=== PATIENT | female | born 1985 | race Caucasian/White ===

== ENCOUNTER 2018-01-05 08:16 | Inpatient (IN) | payer OTHER ==
[2018-01-05] VITALS (13 sets, daily range): BP systolic 111–121; BP diastolic 58–77; PULSE 64–76; RESP 16–18; TEMP 98–98.4
[~2018-01-05] VITALS: Ht 180.3 cm; Wt 81.0 kg
[2018-01-05] MEDS ORDERED: PRENTAB7 (09:10)
[2018-01-05] MEDS ORDERED: VITA250T3 PO (09:17)
[2018-01-05] MEDS ORDERED: ZINC30TA PO (09:18)
[2018-01-05 09:25] LABS: AUTOMATED NEUTROPHIL # 8.9 TH/MM3 (1.8-7.7); BASOPHIL % 0.3 % (0.0-2.0); EOSINOPHIL # 0.3 TH/MM3 (0-0.4); EOSINOPHIL % 2.1 % (0.0-4.0); HEMATOCRIT 37.1 % (35.0-46.0); HEMOGLOBIN 13.1 GM/DL (11.6-15.3); LYMPH % 18.9 % (9.0-44.0); LYMPHOCYTE # 2.4 TH/MM3 (1.0-4.8); MEAN CELL VOLUME 89.9 FL (80.0-100.0); MEAN CORPUSCULAR HEMOGLOBIN 31.8 PG (27.0-34.0); MEAN CORPUSCULAR HGB CONC 35.4 % (32.0-36.0); MEAN PLATELET VOLUME 10.7 FL (7.0-11.0); MONO % 8.3 % (0.0-8.0); MONOCYTE # 1.1 TH/MM3 (0-0.9); NEUT % 70.4 % (16.0-70.0); PLATELET COUNT 188 TH/MM3 (150-450); RED BLOOD COUNT 4.13 MIL/MM3 (4.00-5.30); RED CELL DISTRIBUTION WIDTH 13.1 % (11.6-17.2); WHITE BLOOD COUNT 12.7 TH/MM3 (4.0-11.0)
[2018-01-05 09:38] LABS: BACTERIA, URINE FEW /hpf; BILIRUBIN, URINE NEG (NEG); BLOOD, URINE NEG (NEG); CALCIUM OXALATE CRYSTALS,URINE OCC /hpf; GLUCOSE,URINE NEG (NEG); KETONE, URINE NEG (NEG); MUCUS URINE MOD /lpf (OCC); NITRITE,URINE NEG (NEG); PH, URINE 5.5 (5.0-8.5); SQUAMOUS EPITHELIAL CELL URINE 5 /hpf (0-5); URINE COLOR YELLOW (YELLW/STRAW); URINE LEUKOCYTE ESTERASE SMALL (NEG)
[2018-01-05] MEDS ORDERED: LIDOCAINE HCL 1% 50 ML VIAL INFIL PRN (10:00)
[2018-01-05] MEDS ORDERED: OXYTOCIN 30 UNITS 500ML PREMIX IV ONE (10:00)
[2018-01-05] MEDS ORDERED: CITRIC ACID-SODIUM CITRATE LIQ 30 ML UDC PO SCH (10:00)
[2018-01-05] MEDS ORDERED: MINERAL OIL 10 ML VIAL TOPICAL PRN (10:00)
[2018-01-05] MEDS: LACTATED RINGER'S 1000 ML IV SCH ×2 (10:00→18:00)
[2018-01-05] MEDS ORDERED: MISOPROSTOL 100 MCG TAB - VAGINALLY VAGINAL ONE (10:00)
[2018-01-05] MEDS ORDERED: LIDOCAINE HCL 1% 50 ML VIAL I-DERMAL PRN (10:00)
[2018-01-05] MEDS ORDERED: LACTATED RINGER'S 1000 ML BOLUS IV PRN (10:00)
[2018-01-05] MEDS ORDERED: NS 1000 ML IV PRN (10:00)
[2018-01-05] MEDS: LACTATED RINGER'S 1000 ML INJ 1,000 ML IV SCH ×2 (10:00→18:00)
[2018-01-05] MEDS ORDERED: NS 500 ML BOLUS IV PRN (10:00)
--- NOTE | 2018-01-05 21:12 | PD.LABORPN ---
Subjective Subjective patient doing well. She wants pitocin and not Arom after 2x cervidil Objective Vital Signs Vital Signs Date Time Temp Pulse Resp B/P (MAP) Pulse Ox O2 Delivery O2 Flow Rate FiO2 01/05/18 19:45 98.3 01/05/18 19:45 16 01/05/18 19:41 69 114/67 (83) 01/05/18 15:05 68 111/58 (75) 01/05/18 15:04 98.1 16 Objective Pelvic Exam: Cervix: [-] Dilatation: 1 Effacement: 70 Station: [-] Presentation: vtx Membranes: intact Uterine Contractions: [-] FHT's: Category: 1 Baseline: [-] Reactive: [-] Variability: [-] Decels: [-] Weeks Gestation: 40 Gest Age Assessed Date: Jan 05, 2018 Pt started active labor?: Yes Active labor start date: Jan 05, 2018 Active labor start time: 10:00 Medical induction of labor?: Yes Medical induction start date: Jan 05, 2018 Medical induction start time: 10:00 Artificial rupture of membrane: No Assessment/Plan Problem List: (1) 40 weeks gestation of ICD Codes: Z3A.40 - 40 weeks gestation of Lars Salcedo MD Jan 05, 2018 21:12
[2018-01-05] MEDS ORDERED: OXYTOCIN 30 UNITS-500ML PREMIX 500 ML IV PRN (21:15)
--- NOTE | 2018-01-05 22:27 | HHI.HP ---
HPI Chief Complaint post dates 40 5/7 weeks Date Seen: Jan 05, 2018 Time Seen: 19:00 Travel History International Travel<30 Days: No Contact w/Intl Traveler<30Days: No Known Affected Area: No History of Present Illness HPI 32 yo comes for induction at 40 5/7 week with cytotec. She is aware of increased risk of CS Weeks Gestation: 40 Para: 0 : 1 History Past Medical History Medical History: Denies Significant Hx Past Surgical History Surgical History: No Previous Surgery Family History Family History: Negative Social History Alcohol Use: No Tobacco Use: No Substance Abuse: No Allergies-Medications (Allergen,Severity, Reaction): Coded Allergies: No Known Allergies (Unverified , 01/05/18) Home Meds Reported Medications Zinc Gluconate (Zinc Gluconate) 30 Mg Tab, 30 MG PO DAILY for Nutritional Supplement, TAB 0 Refills 01/05/18 Ascorbic Acid (Vitamin C) 250 Mg Tab, 250 MG PO for Nutritional Supplement, TAB 0 Refills 01/05/18 Pnv No.95/Ferrous Fum/Folic AC ( Vitamins Tablet) 28 Mg Iron-800 Mcg Tablet 01/05/18 Review of Systems Except as stated in HPI: all other systems reviewed are Neg Physical Exam Vital Signs Date Time Temp Pulse Resp B/P (MAP) Pulse Ox O2 Delivery O2 Flow Rate FiO2 01/05/18 22:00 71 118/72 (87) 01/05/18 21:45 18 01/05/18 21:36 75 112/65 (81) 01/05/18 19:45 98.3 01/05/18 19:45 16 01/05/18 19:41 69 114/67 (83) 01/05/18 15:05 68 111/58 (75) 01/05/18 15:04 98.1 16 01/05/18 11:04 98.4 Narrative GENERAL: Well-nourished, well-developed patient. SKIN: Warm and dry. HEAD: Normocephalic and atraumatic. . NECK: Supple, trachea midline. No JVD. CARDIOVASCULAR: Regular rate and rhythm without murmurs, gallops, or rubs. RESPIRATORY: Breath sounds equal bilaterally. No accessory muscle use. BREASTS: Bilateral exam showed no masses , no retractions, no nipple discharge. ABDOMEN/GI: Abdomen soft, non-tender, bowel sounds present, no rebound, no guarding Gravid to [-] weeks size Fundal Height: 40 cm GENITOURINARY: External Genitalia: intact and normal in appearance BUS glands: [-] Cervix: 1 Dilatation: 1 Effacement: 50 Station: [-] Presentation: [-] Membranes: [intact Uterine Contractions: none FHT's: Category: 1 Baseline: [-] Reactive: [-] Variability: [-] Decels: [-] EXTREMITIES: No cyanosis or edema. BACK: Nontender without obvious deformity. No CVA tenderness. NEUROLOGICAL: Awake and alert. Motor and sensory grossly within normal limits. Five out of 5 muscle strength in all muscle groups. Normal speech. Caprini VTE Risk Assessment Caprini VTE Risk Assessment: No/Low Risk (score <= 1) Caprini Risk Assessment Model Point Value = 1 Point Value = 2 Point Value = 3 Point Value = 5 Age 41-60 Minor surgery BMI > 25 kg/m2 Swollen legs Varicose veins or History of unexplained or recurrent spontaneous Oral contraceptives or hormone replacement Sepsis (< 1 month) Serious lung disease, including pneumonia (< 1 month) Abnormal pulmonary function Acute myocardial infarction Congestive heart failure (< 1 month) History of inflammatory bowel disease Medical patient at bed rest Age 61-74 Arthroscopic surgery Major open surgery (> 45 min) Laparoscopic surgery (> 45 min) Malignancy Confined to bed (> 72 hours) Immobilizing plaster cast Central venous access Age >= 75 History of VTE Family history of VTE Factor V Leiden Prothrombin [id number] Lupus anticoagulant Anticardiolipin antibodies Elevated serum homocysteine Heparin-induced thrombocytopenia Other congenital or acquired thrombophilia Stroke (< 1 month) Elective arthroplasty Hip, pelvis, or leg fracture Acute spinal cord injury (< 1 month) Prophylaxis Regimen Total Risk Factor Score Risk Level Prophylaxis Regimen 0-1 Low Early ambulation 2 Moderate Order ONE of the following: *Sequential Compression Device (SCD) *Heparin 5000 units SQ BID 3-4 Higher Order ONE of the following medications: *Heparin 5000 units SQ TID *Enoxaparin/Lovenox 40 mg SQ daily (WT < 150 kg, CrCl > 30 mL/min) *Enoxaparin/Lovenox 30 mg SQ daily (WT < 150 kg, CrCl > 10-29 mL/min) *Enoxaparin/Lovenox 30 mg SQ BID (WT < 150 kg, CrCl > 30 mL/min) AND/OR *Sequential Compression Device (SCD) 5 or more Highest Order ONE of the following medications: *Heparin 5000 units SQ TID (Preferred with Epidurals) *Enoxaparin/Lovenox 40 mg SQ daily (WT < 150 kg, CrCl > 30 mL/min) *Enoxaparin/Lovenox 30 mg SQ daily (WT < 150 kg, CrCl > 10-29 mL/min) *Enoxaparin/Lovenox 30 mg SQ BID (WT < 150 kg, CrCl > 30 mL/min) AND *Sequential Compression Device (SCD) Data Data Vital Signs Reviewed: Yes Orders Orders Admit To Inpatient (01/05/18 ) Code Status (01/05/18 09:12) Vital Signs (Adult) .Per protocol (01/05/18 09:12) Heart (01/05/18 09:12) Amnioinfusion (01/05/18 09:12) Urinary Catheter Management .ONCE (01/05/18 09:12) Diet Liquid (01/05/18 Breakfast) Complete Blood Count With Diff (01/05/18 09:12) Hold Clot (01/05/18 09:12) Abo/Rh Blood Type (01/05/18 09:12) Urinalysis - C+S If Indicated (01/05/18 09:12) Ob/Psych Drug Screen, Urine (01/05/18 09:12) Resp Oxygen Non Rebreathe Mask (01/05/18 ) ^ Epidural / Intrathecal Infus (01/05/18 09:12) Specimen To Be Collected PRN (01/05/18 09:12) Specimen To Be Collected PRN (01/05/18 09:12) ^ Labor Induction (01/05/18 09:17) ^ Vaginal Insert (01/05/18 09:17) ^ Vaginal Lavage (01/05/18:17) Heart (01/05/18 09:17) Lactated Ringer's 1000 Ml Inj (Lr 1000 M (01/05/18 10:00) Lactated Ringer's 1000 Ml Inj (Lr 1000 M (01/05/18 10:00) Sodium Chlorid 0.9% 500 Ml Inj (Ns 500 M (01/05/18 10:00) Sodium Chlor 0.9% 1000 Ml Inj (Ns 1000 M (01/05/18 10:00) Lidocaine 1% Inj (50 Ml) (Xylocaine 1% I (01/05/18 10:00) Citric Acid-Sodium Citrate Liq (Bicitra (01/05/18 10:00) Fentanyl Inj (Fentanyl Inj) (01/05/18 10:00) Fentanyl Inj (Fentanyl Inj) (01/05/18 10:00) Oxytocin 30 Units-500ml Premix (Pitocin (01/05/18 10:00) Lidocaine 1% Inj (50 Ml) (Xylocaine 1% I (01/05/18 10:00) Light Mineral Oil (Muri-Lube Oil) (01/05/18 10:00) Misoprostol (Cytotec) (01/05/18 10:00) Lactated Ringer's 1000 Ml Inj (Lr 1000 M (01/05/18 10:00) ^ Non Stress Test (01/05/18 21:12) Response To Medication .Post New Med Administration, Reaction (01/05/18 21:12) ^ Discontinue Medication (01/05/18 21:12) Oxytocin 30 Units-500ml Premix (Pitocin (01/05/18 21:15) Group B Strep: Negative Labs Laboratory Tests Test 01/05/18 08:53 White Blood Count 12.7 Red Blood Count 4.13 Hemoglobin 13.1 Hematocrit 37.1 Mean Corpuscular Volume 89.9 Mean Corpuscular Hemoglobin 31.8 Mean Corpuscular Hemoglobin Concent 35.4 Red Cell Distribution Width 13.1 Platelet Count 188 Mean Platelet Volume 10.7 Neutrophils (%) (Auto) 70.4 Lymphocytes (%) (Auto) 18.9 Monocytes (%) (Auto) 8.3 Eosinophils (%) (Auto) 2.1 Basophils (%) (Auto) 0.3 Neutrophils # (Auto) 8.9 Lymphocytes # (Auto) 2.4 Monocytes # (Auto) 1.1 Eosinophils # (Auto) 0.3 Basophils # (Auto) 0.0 CBC Comment AUTO DIFF Differential Comment AUTO DIFF CONFIRMED Platelet Estimate NORMAL Platelet Morphology Comment ENLARGED Urine Color YELLOW Urine Turbidity HAZY Urine pH 5.5 Urine Specific [place] 1.022 Urine Protein TRACE Urine Glucose (UA) NEG Urine Ketones NEG Urine Occult Blood NEG Urine Nitrite NEG Urine Bilirubin NEG Urine Urobilinogen LESS THAN 2.0 Urine Leukocyte Esterase SMALL Urine RBC 1 Urine WBC 5 Urine Squamous Epithelial Cells 5 Urine Calcium Oxalate Crystals OCC Urine Bacteria FEW Urine Mucus MOD Microscopic Urinalysis Comment CULT NOT INDICATED Urine Opiates Screen NEG Urine Barbiturates Screen NEG Urine Amphetamines Screen NEG Urine Benzodiazepines Screen NEG Urine Cocaine Screen NEG Urine Cannabinoids Screen NEG Assessment/Plan Problem List: (1) 40 weeks gestation of ICD Codes: Z3A.40 - 40 weeks gestation of Discharge Planning for induction expect and DC home. She is RH negative Lars Salcedo MD Jan 05, 2018 22:27
[2018-01-06] VITALS (60 sets, daily range): BP systolic 88–122; BP diastolic 45–71; PULSE 62–136; RESP 16–18; TEMP 98–99.5
[2018-01-06] MEDS: LACTATED RINGER'S 1000 ML IV SCH (02:00)
[2018-01-06] MEDS ORDERED: fentaNYL 2MCG-BUPIV 0.125% INJ 100 ML ONE (04:55)
[2018-01-06] MEDS ORDERED: ePHEDrine/NS 25 MG/5 ML SYRINGE ONE (04:55)
[2018-01-06] MEDS ORDERED: NO SYSTEM NARCOTICS PRN (06:00)
[2018-01-06] MEDS ORDERED: ePHEDrine/NS 25 MG/5 ML SYRINGE IV PUSH PRN (06:00)
[2018-01-06] MEDS ORDERED: DO NOT ADMINISTER ANTICOAGULANTS PRN (06:00)
[2018-01-06] MEDS ORDERED: fentaNYL 2MCG-BUPIV 0.125% 100 ML EPIDURAL SCH (06:00)
[2018-01-06] MEDS ORDERED: LIDOCAINE HCL 1.5% PF 20 ML AMP ONE (07:54)
--- NOTE | 2018-01-06 07:54 | PD.LABORPN ---
Subjective Subjective doing well on epidural Objective Vital Signs Vital Signs Date Time Temp Pulse Resp B/P (MAP) Pulse Ox O2 Delivery O2 Flow Rate FiO2 01/06/18 07:32 18 01/06/18 07:32 98.4 01/06/18 07:30 85 95/48 (64) 01/06/18 07:15 74 99/55 (70) 01/06/18 07:00 71 102/47 (65) 01/06/18 06:45 73 102/55 (71) 01/06/18 06:30 79 109/60 (76) 01/06/18 06:15 69 111/62 (78) 01/06/18 06:02 78 109/64 (79) 01/06/18 05:42 98.1 16 01/06/18 05:35 73 01/06/18 05:30 83 108/53 (71) 01/06/18 05:30 80 01/06/18 05:27 74 110/55 (73) 01/06/18 05:25 75 01/06/18 05:24 73 98/53 (68) 01/06/18 05:22 87 90/45 (60) 01/06/18 05:21 72 88/52 (64) 01/06/18 05:20 89 01/06/18 05:18 100 91/64 (73) 01/06/18 05:15 87 01/06/18 05:15 96 100/62 (75) 01/06/18 05:12 93 106/61 (76) 01/06/18 05:11 84 113/65 (81) 01/06/18 05:10 88 01/06/18 05:05 101 01/06/18 05:00 70 115/63 (80) 01/06/18 05:00 67 01/06/18 04:55 68 01/06/18 04:30 71 101/47 (65) 01/06/18 04:00 69 93/50 (64) 01/06/18 03:30 65 110/69 (83) 01/06/18 03:00 64 110/70 (83) 01/06/18 02:31 70 108/65 (79) 01/06/18 02:12 98.0 16 01/06/18 02:00 63 122/64 (83) 01/06/18 01:30 67 116/71 (86) 01/06/18 01:15 18 01/06/18 01:00 65 101/54 (70) 01/06/18 00:45 98.4 18 01/06/18 00:30 65 98/52 (67) 01/06/18 00:00 62 97/56 (70) Objective Pelvic Exam: Cervix: [-] Dilatation: 6 Effacement: [-] Station: [-] Presentation: vtx Membranes: SROM Uterine Contractions: [-] FHT's: Category: 1 Baseline: [-] Reactive: [-] Variability: [-] Decels: [-] Weeks Gestation: 40 Gest Age Assessed Date: Jan 05, 2018 Pt started active labor?: Yes Active labor start date: Jan 05, 2018 Active labor start time: 10:00 Medical induction of labor?: Yes Medical induction start date: Jan 05, 2018 Medical induction start time: 10:00 Artificial rupture of membrane: No Assessment/Plan Problem List: (1) 40 weeks gestation of ICD Codes: Z3A.40 - 40 weeks gestation of Lars Salcedo MD Jan 06, 2018 07:54
--- NOTE | 2018-01-06 10:12 | PD.OB.DELI ---
Weeks gestation: 40 Gest age assessed date: Jan 05, 2018 Pt started active labor?: Yes Active labor start date: Jan 05, 2018 Active labor start time: 10:00 Medical induction of labor?: Yes Medical induction start date: Jan 05, 2018 Medical induction start time: 10:00 Artificial rupture of membrane: No Anesthesia: Epidural Episiotomy: Right mediolateral Vaginal Delivery: Normal, Vacuum (single pull no pop offs) Presentation: Occiput anterior Nuchal Cord: x1 Delayed cord clamping (45 sec): Yes : Male, Single Delivery date: Jan 06, 2018 Delivery time: 09:36 One Minute : 8 Five Minute : 9 Weight: 8# 3oz Placenta: Spontaneous delivery, Intact, 3 vessel cord Laceration: Episiotomy Repair: Chromic running Estimated blood loss: 300 Lars Salcedo MD Jan 06, 2018 10:12
[2018-01-06] MEDS ORDERED: WITCH HAZEL 50%/GLYCERIN 12.5% 40 PAD JAR TOPICAL PRN (10:15)
[2018-01-06] MEDS ORDERED: ALUMINUM/MAGNESIUM/SIMETH 30 ML CUP PO PRN (10:15)
[2018-01-06] MEDS ORDERED: BENZOCAINE 20% TOPICAL SPRAY 60 ML CAN TOPICAL PRN (10:15)
[2018-01-06] MEDS ORDERED: ONDANSETRON ODT 4 MG TAB PO PRN (10:15)
[2018-01-06] MEDS ORDERED: DOCUSATE SODIUM 50 MG/SENNA 8.6 MG TAB PO PRN (10:15)
[2018-01-06] MEDS ORDERED: OXYTOCIN 30 UNITS-500ML PREMIX 500 ML IV SCH (10:15)
[2018-01-06] MEDS ORDERED: oxyCODONE/ACETAMINOPHEN 5 MG/325 MG TAB PO PRN ×2 (10:15)
[2018-01-06] MEDS ORDERED: SODIUM CHLORIDE 0.9% FLUSH 10 ML FLUSH IV FLUSH PRN (10:15)
[2018-01-06] MEDS ORDERED: ACETAMINOPHEN 325 MG TAB PO PRN (10:15)
[2018-01-06] MEDS: IBUPROFEN 800 MG TAB PO PRN ×2 (11:21→19:30)
[2018-01-06] MEDS ORDERED: MEASLES, MUMPS, RUBELLA VACCINE 0.5 ML VIAL SQ ONE (16:00)
[2018-01-06] MEDS ORDERED: DIPHTH/TETANUS/ACEL PERTUSSIS (BOOSTER) 0.5 ML VIAL/PFS IM ONE (16:00)
[2018-01-06] MEDS ORDERED: SODIUM CHLORIDE 0.9% FLUSH 10 ML FLUSH IV FLUSH SCH (21:00)
[2018-01-06] MEDS ORDERED: ZOLPIDEM TARTRATE 5 MG TAB PO PRN (21:00)
[2018-01-07] MEDS: IBUPROFEN 800 MG TAB PO PRN ×2 (05:28→14:59)
--- NOTE | 2018-01-07 07:38 | HHI.OB ---
Subjective Post Day: 1 Remarks doing well Objective Vitals/I&O Vital Signs Date Time Temp Pulse Resp B/P (MAP) Pulse Ox O2 Delivery O2 Flow Rate FiO2 01/06/18 20:00 99.0 01/06/18 20:00 99.5 96 18 109/66 (80) 01/06/18 12:30 103/67 (79) 01/06/18 12:30 98.3 80 18 01/06/18 11:00 16 01/06/18 11:00 90 120/70 (87) 01/06/18 10:45 18 01/06/18 10:45 93 114/68 (83) 01/06/18 10:32 88 110/67 (81) 01/06/18 10:30 18 01/06/18 10:16 74 88/70 (76) 01/06/18 10:12 98.5 01/06/18 10:12 18 01/06/18 10:00 136 99/56 (70) 01/06/18 09:45 111 98/63 (75) 01/06/18 09:40 124 01/06/18 09:35 108 01/06/18 09:30 96 01/06/18 09:25 100 01/06/18 09:20 99 01/06/18 09:15 77 01/06/18 09:15 84 108/51 (70) 01/06/18 08:46 80 98/50 (66) 01/06/18 08:31 78 109/50 (69) 01/06/18 08:17 77 92/54 (67) 01/06/18 08:15 62 96/58 (71) 01/06/18 08:00 89 89/56 (67) 01/06/18 07:45 67 100/53 (69) Objective Remarks GENERAL: Well-nourished, well-developed patient. ABDOMEN/GI: Abdomen soft, non-tender. Fundus: Firm, non-tender at umbilicus. GENITOURINARY: Light to moderate bleeding. EXTREMITIES: No cyanosis or edema, non-tender, without signs of DVT. Medications and IVs Current Medications Medications (Trade) Dose Ordered Sig/Arely Route Start Time Stop Time Status Last Admin (NS Flush) 2 ml BID IV FLUSH 01/06/18 21:00 (NS Flush) 2 ml UNSCH PRN IV FLUSH 01/06/18 10:15 (Tylenol) 650 mg Q4H PRN PO 01/06/18 10:15 (Motrin) 800 mg Q8H PRN PO 01/06/18 10:15 01/07/18 05:28 (Percocet 5-325 Mg) 1 tab Q4H PRN PO 01/06/18 10:15 (Percocet 5-325 Mg) 2 tab Q4H PRN PO 01/06/18 10:15 (Americaine 20% Top Spr) 1 spray Q4H PRN TOPICAL 01/06/18 10:15 01/06/18 22:01 (Tucks Pads) 1 applic QID PRN TOPICAL 01/06/18 10:15 01/06/18 22:01 (Britany-Colace) 2 tab Q12H PRN PO 01/06/18 10:15 01/07/18 05:28 (Ambien) 5 mg HS PRN PO 01/06/18 21:00 (Mag-Al Plus Susp Liq) 15 ml Q8H PRN PO 01/06/18 10:15 (Zofran Odt) 4 mg Q6H PRN PO 01/06/18 10:15 Assessment/Plan Problem List: (1) 40 weeks gestation of ICD Codes: Z3A.40 - 40 weeks gestation of (2) Spontaneous vaginal delivery ICD Codes: O80 - Encounter for full-term uncomplicated delivery Discharge Planning dc today or tomorrow Lars Salcedo MD Jan 07, 2018 07:38
--- NOTE | 2018-01-07 07:40 | HHI.DCPOC ---
Discharge Care Plan Diagnosis: (1) Spontaneous vaginal delivery Report Symptoms to Your Doctor -Temperature above 100.5 degrees -Redness, of incision or excessive or foul smelling drainage -Unusual pain or calf pain -Increased vaginal bleeding -Painful or difficulty urinating -Feelings of extreme sadness or anxiety after 2 weeks Goals to Promote Your Health * To prevent worsening of your condition and complications * To maintain your health at the optimal level Directions to Meet Your Goals Take your medications as prescribed Follow your dietary instruction Follow activity as directed Ensure plenty of rest for recovery Drink fluids for hydration Keep your appointments as scheduled Take your immunizations and boosters as scheduled If your symptoms worsen call your PCP, if no PCP go to Urgent Care Center or Emergency Room Smoking is Dangerous to Your Health. Avoid second hand smoke Call the 24-hour crisis hotline for domestic abuse at Lars Salcedo MD Jan 07, 2018 07:40
[2018-01-07] MEDS ORDERED: OXYC1TAB63 PO (07:41)
[2018-01-07 08:00] VITALS: BP 125/73; PULSE 91; RESP 20; TEMP 98
== END 2018-01-07 15:24 | disposition home or self-care (01) | DRG 775 ==
LOC: H2EA 08:16 → H1EA 01-06 12:03
PROVIDERS: ADMIT Obstetrics & Gynecology; ATTEND Obstetrics & Gynecology
PROC: 3E0P7VZ Introduction of Hormone into Female Reproductive, Via Natural or Artificial Opening (ICD-10-PCS; 2018-01-05)
PROC: 3E033VJ Introduction of Other Hormone into Peripheral Vein, Percutaneous Approach (ICD-10-PCS; 2018-01-05)
PROC: 10E0XZZ Delivery of Products of Conception, External Approach (ICD-10-PCS; principal; 2018-01-06)
PROC: 0W8NXZZ Division of Female Perineum, External Approach (ICD-10-PCS; 2018-01-06)
DX: O48.0 Post-term pregnancy (principal); O69.81X0 Labor and delivery complicated by cord around neck, without compression, not applicable or unspecified; Z3A.40 40 weeks gestation of pregnancy; Z37.0 Single live birth
CPT/HCPCS: 59025; 80307; 81001; 85025; 85461; 86850; 86900; 86901; 90384; 90715; G0481; J2590; J2790; J3010; J7120